=== PATIENT | male | born 1965 | race Caucasian/White ===

== ENCOUNTER 2021-07-31 09:11 | Emergency (ER) | payer SELFPAY | END 2021-07-31 11:28 | disposition home or self-care (01) | LOC: CSHERS 09:11 | DX: S82.831A Other fracture of upper and lower end of right fibula, initial encounter for closed fracture (principal); W01.0XXA Fall on same level from slipping, tripping and stumbling without subsequent striking against object, initial encounter | CPT/HCPCS: 71045 ==